=== PATIENT | female | born 1945 | race Two or more races ===

== ENCOUNTER 2019-01-28 15:06 | Inpatient (IN) | payer OTHER ==
[~2019-01-28] VITALS: Ht 160 cm; Wt 70.8 kg
[2019-02-08] MEDS ORDERED: BREO ELLIPTA I1 EACH IH (11:20)
[2019-02-08] MEDS ORDERED: VERAPAMIL ER240 MG PO (11:20)
[2019-02-08] MEDS ORDERED: HUM (11:21)
[2019-02-08] MEDS ORDERED: [UNRECOGNIZED DRUG - OTHER] (11:22)
[2019-02-08] MEDS ORDERED: LANTUS (11:22)
[2019-02-08] MEDS ORDERED: SYNTHROID150 MCG PO (11:23)
[2019-02-08] MEDS ORDERED: ENALAPRIL MALEA20 MG PO (11:23)
[2019-02-08] MEDS ORDERED: HYDROCHLOROTHIA25 MG PO (11:23)
[2019-02-08] MEDS ORDERED: SINGULAIR10 MG PO (11:23)
[2019-02-08] MEDS ORDERED: ANASTROZOLE1 MG PO (11:24)
[2019-03-30] MEDS ORDERED: GLUTASOLVE15 GM PO (08:40)
== END 2019-03-30 13:12 | disposition home health service (06) | DRG 329 ==
LOC: SURG 02-08 10:30 → SURH 02-15 06:42 → SURG 02-15 06:42 → O/R 02-15 06:42 → SURG 02-15 10:30 → SURH 02-19 15:33 → SURG 02-19 17:30 → SURH 02-19 17:42
PROVIDERS: ADMIT Surgery
PROC: 07TB0ZZ Resection of Mesenteric Lymphatic, Open Approach (ICD-10-PCS; 2019-02-15)
PROC: 4A033R1 Measurement of Arterial Saturation, Peripheral, Percutaneous Approach (ICD-10-PCS; 2019-02-15)
PROC: 4A12X4Z Monitoring of Cardiac Electrical Activity, External Approach (ICD-10-PCS; 2019-02-15)
PROC: 0DTF0ZZ Resection of Right Large Intestine, Open Approach (ICD-10-PCS; principal; 2019-02-15 11:00)
PROC: 0BH17EZ Insertion of Endotracheal Airway into Trachea, Via Natural or Artificial Opening (ICD-10-PCS; 2019-02-17)
PROC: 5A1945Z Respiratory Ventilation, 24-96 Consecutive Hours (ICD-10-PCS; 2019-02-17)
PROC: B246ZZZ Ultrasonography of Right and Left Heart (ICD-10-PCS; 2019-02-17)
PROC: B54DZZZ Ultrasonography of Bilateral Lower Extremity Veins (ICD-10-PCS; 2019-02-17)
PROC: BB24Y0Z Computerized Tomography (CT Scan) of Bilateral Lungs using Other Contrast, Unenhanced and Enhanced (ICD-10-PCS; 2019-02-17)
PROC: 0W9930Z Drainage of Right Pleural Cavity with Drainage Device, Percutaneous Approach (ICD-10-PCS; 2019-02-18)
PROC: 8E0ZXY6 Isolation (ICD-10-PCS; 2019-02-19)
PROC: BW21Y0Z Computerized Tomography (CT Scan) of Abdomen and Pelvis using Other Contrast, Unenhanced and Enhanced (ICD-10-PCS; 2019-02-23)
PROC: 0W9830Z Drainage of Chest Wall with Drainage Device, Percutaneous Approach (ICD-10-PCS; 2019-02-25)
PROC: 0W9930Z Drainage of Right Pleural Cavity with Drainage Device, Percutaneous Approach (ICD-10-PCS; 2019-02-25)
PROC: 02HV33Z Insertion of Infusion Device into Superior Vena Cava, Percutaneous Approach (ICD-10-PCS; 2019-03-02)
PROC: 0W9930Z Drainage of Right Pleural Cavity with Drainage Device, Percutaneous Approach (ICD-10-PCS; 2019-03-08)
PROC: 0W9930Z Drainage of Right Pleural Cavity with Drainage Device, Percutaneous Approach (ICD-10-PCS; 2019-03-18)
DX: C18.2 Malignant neoplasm of ascending colon (principal); J96.01 Acute respiratory failure with hypoxia; K65.1 Peritoneal abscess; B37.1 Pulmonary candidiasis; K62.5 Hemorrhage of anus and rectum; J90 Pleural effusion, not elsewhere classified; J95.89 Other postprocedural complications and disorders of respiratory system, not elsewhere classified; J98.11 Atelectasis; J45.21 Mild intermittent asthma with (acute) exacerbation; I31.3 Pericardial effusion (noninflammatory); R65.10 Systemic inflammatory response syndrome (SIRS) of non-infectious origin without acute organ dysfunction; N39.0 Urinary tract infection, site not specified; E03.8 Other specified hypothyroidism; B96.29 Other Escherichia coli [E. coli] as the cause of diseases classified elsewhere; E11.65 Type 2 diabetes mellitus with hyperglycemia; K63.89 Other specified diseases of intestine; M62.81 Muscle weakness (generalized); D50.0 Iron deficiency anemia secondary to blood loss (chronic); I87.2 Venous insufficiency (chronic) (peripheral); I08.1 Rheumatic disorders of both mitral and tricuspid valves; I10 Essential (primary) hypertension; K74.69 Other cirrhosis of liver; F43.29 Adjustment disorder with other symptoms; Z99.81 Dependence on supplemental oxygen; Z79.4 Long term (current) use of insulin; Z85.3 Personal history of malignant neoplasm of breast; Z08 Encounter for follow-up examination after completed treatment for malignant neoplasm